=== PATIENT | male | born 1985 | race African-American/Black ===

== ENCOUNTER 2021-01-26 02:21 | Emergency (ER) | payer SELFPAY ==
--- NOTE | ~2021-01-26 | CT_ITS ---
EXAMINATION: CT BRAIN W/O DATE: 01/26/2021 02:59 INDICATION: Headache TECHNIQUE: Computed tomography (CT) of the head was performed without intravenous contrast. The dose- length product was 605.33 mGy-cm. Automated exposure control and iterative reconstruction technique w ere employed. COMPARISON: No prior studies for comparison. FINDINGS: Normal brain parenchymal volume for age. Normal huggins-white differentiation. No acute intrac ranial hemorrhage, infarction, mass or mass effect. No ventriculomegaly or midline shift. Midline sagittal images demonstrate a normal corpus callosum, c raniovertebral junction and sella turcica. Basilar cisterns are patent. Paranasal sinuses and mastoids are pneumatized. No depressed skull fractures. IMPRESSION: 1. No acute intracranial abnormality. Reviewed, dictated and finalized at location A.
[2021-01-26 02:24] VITALS: BP 110/83; PULSE 76; RESP 18; TEMP 36.6; O2SAT 100
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
--- NOTE | 2021-01-26 02:41 | ECG_ITS ---
Measurements Intervals [place] Rate: 61 P: 25 TN: 135 QRS: 87 QRSD: 82 T: 83 QT: 408 QTc: 412 Interpretive Statements SINUS RHYTHM ST ELEVATION IN ANTEROLAT/INF LEADS, PROBABLY EARLY REPOLARIZATION BORDERLINE ECG Electronically Signed On 01-26-2021 6:06:42 CDT by Slava Callaway D.O.
--- NOTE | 2021-01-26 02:44 | PC.NURSE ---
pt ok to have food - pt provided with sandwich, chips, soda at this time.
[2021-01-26 03:49] LABS: Basophils Percent Auto 0.3 % (0.2-1.2); Eosinophils Absolute Auto 0.6 K/mm3 (0-0.3); Eosinophils Percent Auto 5.6 % (0-4.4); Hematocrit 42.1 % (42.0-52.0); Hemoglobin 13.8 g/dL (14.0-18.0); Immature Granulocyte Absolute 0.02 K/mm3 (0.00-0.031); Immature Granulocyte Percent A 0.2 % (0-0.5); Lymphocytes Absolute Auto 4.15 K/mm3 (0.9-3.2); Lymphocytes Percent Auto 38.7 % (18.3-44.2); Mean Corpuscular HGB Conc 32.8 g/dl (32-36); Mean Corpuscular Hemoglobin 27.5 pg (26-34); Mean Corpuscular Volume 83.9 fl (80-100); Mean Platelet Volume 12.2 fl (7.4-10.4); Monocytes Absolute Auto 0.7 K/mm3 (0.1-0.6); Monocytes Percent Auto 6.9 % (2.6-8.5); Neutrophils Absolute Auto 5.2 K/mm3 (1.3-6.7); Neutrophils Percent Auto 48.3 % (45.5-73.1); Platelet Count Result 204 k/mm3 (150-375); Red Blood Count 5.02 M/mm3 (4.6-6.20); Red Cell Distribution Width 13.3 % (11.5-14.5); White Blood Count 10.7 K/mm3 (4.5-10.0)
[2021-01-26 03:52] VITALS: BP 128/79; PULSE 77; RESP 16; O2SAT 100
[2021-01-26 03:57] LABS: Add Urine Microscopic? YES; Appearance Urine Clear (Clear); Bacteria Urine Trace /hpf; Bilirubin Urine 1+ (Negative); Blood Urine Negative (Negative); Color Urine Amber (Yellow); Glucose Urine UA Negative (Negative); Ketones Urine Trace mg/dL (Negative); Leukocyte Esterase Ur Negative LEU/UL (Negative); Nitrate Urine Negative (Negative); Protein Urine 1+ mg/dL (Negative); RBC Urine 0-2 /hpf (0-2); WBC Urine 0-3 /hpf
[2021-01-26 04:00] LABS: Specific Grav Ur 1.039 (1.001-1.035)
[2021-01-26 04:24] LABS: Acetaminophen < 10 ug/mL (10-30); Ethanol < 10 mg/dL (<10)
[2021-01-26 04:31] VITALS: BP 113/75; PULSE 70; RESP 16; O2SAT 99
[2021-01-26 04:47] LABS: Anion Gap 9 mmol/L (8-16); Blood Urea Nitrogen 17 mg/dL (9-20); Calcium 8.9 mg/dL (8.4-10.2); Carbon Dioxide 23 mmol/L (22-30); Chloride 105 mmol/L (98-107); Estimated CRCL calculation 62 ml/min; Estimated Glomerular Filt Rate > 60; Glucose 147 mg/dL (65-110); Potassium 3.5 mmol/L (3.4-5.0); Sodium 137 mmol/L (137-145)
[2021-01-26 04:48] LABS: Alanine Aminotransferase 14 U/L (4-50); Albumin Level 4.1 g/dL (3.5-5.1); Alkaline Phosphatase 57 U/L (38-126); Aspartate Amino Transferase 22 U/L (17-59)
--- NOTE | 2021-01-26 05:05 | PC.NURSE ---
Crisis contacted at this time per ERP VRBO.
[2021-01-26 05:43] LABS: Barbiturate Screen Urine Negative (Negative); Benzodiazepines Screen Urine Negative (Negative); Cannabinoid Screen Urine Negative (Negative); Cocaine Screen Urine Negative (Negative); Methadone Screen Urine Negative (Negative); Opiate Screen Urine Negative (Negative); Phencyclidine Screen Urine Negative (Negative)
[2021-01-26 05:52] VITALS: BP 105/70; PULSE 63; RESP 16; O2SAT 100
--- NOTE | 2021-01-26 05:52 | PC.NURSE ---
Crisis in room to evaluate at this time.
[2021-01-26 06:11] LABS: Amphetamine Screen Urine Positive (Negative)
[2021-01-26 07:17] LABS: Bilirubin,Total 0.5 mg/dL (0.2-1.3); Salicylate < 1.0 mg/dL (2-20)
== END 2021-01-26 06:25 | disposition home or self-care (01) ==
PROVIDERS: Emergency Provider Emergency Medicine
DX: S09.90XA Unspecified injury of head, initial encounter (principal); Z76.0 Encounter for issue of repeat prescription; F31.9 Bipolar disorder, unspecified; Y04.0XXA Assault by unarmed brawl or fight, initial encounter
CPT/HCPCS: 36415; 70450; 80053; 80307; 81001; 84443; 85025; 93005; 99284